=== PATIENT | male | born 1935 | race Caucasian/White ===

== ENCOUNTER 2019-05-24 19:40 | Inpatient (IN) | payer MEDICARE, MEDICAID ==
--- NOTE | 2019-05-24 20:10 | ED Physician Chart ---
ED Chief Complaint/HPI - Patient Information Date Seen:: 05/24/19 Time Seen:: 20:01 Chief Complaint:: agitation History of Present Illness:: 84 yr old [facility] for agitation and psych eval has hx of severe depression dementia Allergies:: Allergies Allergy/AdvReac Type Severity Reaction Status Date / Time erythromycin base Allergy Verified 05/24/19 19:41 Penicillins [PCN] Allergy Verified 05/24/19 19:41 Vitals:: Vital Signs - 8 hr 05/24/19 19:44 Temp 98.2 F HR 68 RR 18 BP 138/72 O2 Sat % 98 ED Review of Systems - Review of Systems General/Constitutional: No fever, No chills, No weight loss, No weakness, No diaphoresis, No edema, No loss of appetite Skin: No skin lesions, No rash, No bruising Head: No headache, No light-headedness Eyes: No loss of vision, No pain, No diplopia ENT: No earache, No nasal drainage, No sore throat, No tinnitus Neck: No neck pain, No swelling, No thyromegaly, No stiffness, No mass noted Cardio Vascular: No chest pain, No palpitations, No PND, No orthopnea, No edema Pulmonary: No SOB, No cough, No sputum, No wheezing GI: No nausea, No vomiting, No diarrhea, No pain, No melena, No hematochezia, No constipation, No hematemesis G/U: No dysuria, No frequency, No hematuria Musculoskeletal: No bone or joint pain, No back pain, No muscle pain Endocrine: No polyuria, No polydipsia Psychiatric: No prior psych history, No depression, No anxiety, No suicidal ideation Hematopoietic: No bruising, No lymphadenopathy Allergic/Immuno: No urticaria, No angioedema Neurological: No syncope, No focal symptoms, No weakness, No paresthesia, No headache, No seizure, No dizziness, No confusion, No vertigo ED Past Medical History - Past Medical History Past Medical History: Seizures, Dementia Family Medical History - Family Member Mother History Unknown: Yes ED Physical Exam - Physical Examination General/Constitutional: Awake, Well-developed, well-nourished, Alert, No distress, GCS 15, Non-toxic appearing, Ambulatory Head: Atraumatic Eyes: Lids, conjuctiva normal, PERRL, EOMI Skin: Nl inspection, No rash, No skin lesions, No ecchymosis, Well hydrated, No lymphadenopathy ENMT: External ears, nose nl, Nasal exam nl, Lips, teeth, gums nl Neck: Nontender, Full ROM w/o pain, No JVD, No nuchal rigidity, No bruit, No mass, No stridor Respiratory: Nl effort/Exclusion, Clear to Auscultation, No Wheeze/Rhonchi/Rales Cardio Vascular: RRR, No murmur, gallop, rubs, NL S1 S2 GI: No tenderness/rebounding/guarding, No organomegaly, No hernia, Normal BS's, Nondistended, No mass/bruits, No McBurney tenderness : No CVA tenderness Extremities: No tenderness or effusion, Full ROM, normal strength in all extremities, No edema, Normal digits & nails Neuro/Psych: Alert/oriented, DTR's symmetric, Normal sensory exam, Normal motor strength, Judgement/insight normal, Mood normal, Normal gait, No focal deficits Misc: Normal back, No paraspinal tenderness ED Assessment - Assessment General Assessment: depression severe and dementia ED Septic Shock - . Is Septic Shock (SBP<90, OR Lactate>4 mmol\L) present?: No - <6hrs of presentation: Vital Signs: Vital Signs - 8 hr 05/24/19 19:44 Temp 98.2 F HR 68 RR 18 BP 138/72 O2 Sat % 98 ED Reassessment (Disposition) - Reassessment Reassessment:: depression - Diagnosis Diagnosis:: as above - Patient Disposition Admitted to:: [facility] Condition at Disposition:: Stable
[2019-05-24 20:27] LABS: % BASOPHILS 0.8 % (0.0-2.0); % LYMPHOCYTES 18.4 % (20.0-50.0); % MONOCYTES 11.7 % (2.0-10.0); % NEUTROPHILS 64.1 % (40.0-80.0); BASOPHILE ABSOLUTE 0.1 Th/cumm (0-0.2); EOSINOPHILE ABSOLUTE 0.4 Th/cmm (0.1-0.4); HEMATOCRIT 36.8 % (41.0-60); HEMOGLOBIN 12.5 gm/dL (12-16); LYMPHOCYTE ABSOLUTE 1.4 Th/cmm (1.5-3.0); MEAN CELL VOLUME 98.1 fl (80-99); MEAN CORPUSCULAR HEMOGLOBIN 33.4 pg (27.0-31.0); MONOCYTE ABSOLUTE 0.9 Th/cmm (0.3-1.0); PLATELET COUNT 135 Th/cmm (150-400); RED BLOOD COUNT 3.75 Mil/cmm (3.80-5.80); RED CELL DISTRIBUTION WIDTH 12.7 % (11.5-20.0); WHITE BLOOD COUNT 7.8 Th/cmm (4.8-10.8)
[2019-05-24 20:38] LABS: ALB/GLOB RATIO 1.2 (1.0-1.8); ALBUMIN 3.9 gm/dL (4.2-5.5); ALKALINE PHOSPHATASE 71 U/L (34-104); ANION GAP 11.2 (7.0-16.0); BILIRUBIN,TOTAL 0.4 mg/dL (0.3-1.0); BUN - UREA NITROGEN 33 mg/dL (7-25); CALCIUM SERUM 9.5 mg/dL (8.6-10.3); CARBON DIOXIDE 29.2 mEq/L (21.0-31.0); CHLORIDE 101 mEq/L (98-107); CREATININE - SERUM 1.8 mg/dL (0.7-1.3); GLUCOSE 111 mg/dL (70-105); POTASSIUM SERUM 5.4 mEq/L (3.5-5.1); SGOT 25 U/L (13-39); SGPT/ALT 14 U/L (7-52); SODIUM SERUM 136 mEq/L (136-145); TOTAL PROTEIN,SERUM 7.3 gm/dL (6.0-8.3)
[2019-05-24 23:22] VITALS: BP 136/56
[2019-05-24] MEDS ORDERED: Magnesium Hydroxide (MOM) 30 mL UDC PO PRN ×2 (23:23→23:27)
[2019-05-24] MEDS ORDERED: Fleet Enema 135 mL RC PRN (23:27)
[2019-05-24 23:30] LABS: URINE SOURCE RANDOM
[2019-05-24 23:37] LABS: URINE BILIRUBIN NEGATIVE (NEGATIVE); URINE BLOOD NEGATIVE (NEGATIVE); URINE GLUCOSE (UA) NEGATIVE (NEGATIVE); URINE KETONE NEGATIVE (NEGATIVE); URINE LEUKOCYTE ESTERASE NEGATIVE (NEGATIVE); URINE NITRATE NEGATIVE (NEGATIVE); URINE PH 7.5 (4.6 - 8.0); URINE PROTEIN NEGATIVE (NEGATIVE); URINE UROBILINOGEN 0.2 E.U./dL (0.2 - 1.0)
[2019-05-24 23:50] LABS: URINE CLARITY CLEAR (CLEAR); URINE COLOR YELLOW; URINE MICROSCOPIC INDICATED? YES
[2019-05-24 23:53] LABS: URINE BACTERIA NONE SEEN /hpf (NONE SEEN); URINE EPITHELIAL CELLS NONE SEEN /lpf (FEW); URINE RBC NONE SEEN /hpf (0-5); URINE WBC NONE SEEN /hpf (0-5)
[2019-05-25 00:36] LABS: CHOLESTEROL 168 mg/dL (<200); HDL -HIGH DENSITY LIPOPROTEIN 55 mg/dL (23-92); TRIGLYCERIDES 83 mg/dL (<150)
[2019-05-25] MEDS: Pantoprazole 40 mg EC Tab PO SCH (06:37)
[2019-05-25] MEDS: Ferrous Sulfate 325 MG TAB PO SCH (08:17)
[2019-05-25] MEDS: Multivitamin Tab PO SCH (08:18)
--- NOTE | 2019-05-25 09:32 | Diagnostic Imaging Report ---
CT scan of the brain without contrast History: Status post fall Total DLP equals 799 CTDI equals 40.7 Axial sections were obtained from the base of the skull to the vertex. There is a normal ventricular system size. No focal parenchymal lesions are seen. No evidence of any mass effect or shift of midline structures. No extra-axial masses or abnormal fluid collections. Prominence of cerebral sulci and ventricles consistent with atrophy. Soft tissue swelling occipital area. Impression: Atrophy. Soft tissue swelling left occipital area.
--- NOTE | 2019-05-25 20:41 | Psychiatric Evaluation ---
DATE OF SERVICE: 05/25/2019 INITIAL PSYCHIATRIC EVALUATION. CHIEF COMPLAINT: "I'm okay." HISTORY OF PRESENT ILLNESS: The patient is an 84-year-old male who was sent from his [facility] facility, [facility] for increased anxiety, agitation and anger outburst. The patient has become a little bit more paranoid and threatening at times. The patient admits to feeling depressed. The patient has been taking his medications. PAST PSYCHIATRIC HISTORY: Significant for depression, mood swings, possible bipolar disorder. SUBSTANCE ABUSE HISTORY: History of benzodiazepine dependence as per daughter. 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 The patient resides at [facility] and he requires complete care. Daughter is supportive and involved in the patient's care. PAST MEDICAL HISTORY: As per H and P. The patient with medical history significant for Parkinson's disease. MENTAL STATUS EXAMINATION: Speech is monotonous, short sentences with some delayed responses at times. Affect constricted, guarded and depressed and the patient reports depressed mood. The patient is somewhat guarded and paranoid, but denied having auditory hallucinations. He is oriented to person, being in the hospital, knows the year, knows the month, but he thought he was 88 years old. No suicidal or homicidal thoughts. THE PATIENT'S STRENGTHS: The patient is accepting treatment. The patient has poor coping skills, difficulty coping with his stressors, mostly his Parkinson's disease. 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 Rule out dementia related to Alzheimer's type. MEDICAL: As per medical history. PLAN: We will admit the patient for hospitalization. We will start with individual and group therapy, assess psychopharmacological intervention. Discussed the options with daughter, restart the patient on Lexapro, which he has taken in the past. Continue olanzapine 2.5 mg p.o. at bedtime. Continue current dose of Lamictal. ESTIMATED LENGTH OF STAY: 3-5 days. CRITERIA FOR DISCHARGE: Improved condition. No agitation or aggressive behavior, safe disposition, outpatient treatment plan. JOB# [id number]
[2019-05-26] MEDS: Pantoprazole 40 mg EC Tab PO SCH (06:29)
[2019-05-26 08:06] LABS: A1C 5.4 % (4.8-5.6)
[2019-05-26] MEDS: Ferrous Sulfate 325 MG TAB PO SCH (09:02)
[2019-05-26] MEDS: Multivitamin Tab PO SCH (09:03)
[2019-05-26] MEDS: Escitalopram Oxalate 5 mg Tab PO SCH (09:03)
--- NOTE | 2019-05-26 21:02 | Progress Notes ---
DATE: 05/26/2019 SUBJECTIVE: The patient was seen, chart reviewed, stated he is feeling better, feeling less anxious. Denies being depressed, but still being down at times. The patient has no suicidal thoughts. The patient's appetite and sleep are fair. The patient is still somewhat guarded, slightly paranoid, but no agitation. ASSESSMENT: The patient's condition is slowly improving. The patient was restarted back on Lexapro. PLAN: Continue hospitalization stabilization. ESTIMATED LENGTH OF STAY: Review progress through daily assessment. [facility]# [id number]
--- NOTE | 2019-05-26 21:36 | History & Physical ---
ADMIT DATE: 05/24/2019 REASON FOR ADMISSION: Psychiatric disorder. HISTORY OF PRESENT ILLNESS: This 84-year-old male who was admitted to [facility] for underlying psychiatric illness by Dr. Martinez. Dr. Martinez requested medical H and P on this patient. The patient said he is doing fine. The patient has had a fall at the [facility] where he sustained a scalp trauma and developed hematoma. The patient denies any headache, no vomiting, no fever, no chills or other concerns reported. PAST MEDICAL HISTORY: Iron deficiency anemia, seizure disorders, chronic constipation, mental disorders, and advanced dementia. FAMILY HISTORY: Noncontributory. SOCIAL HISTORY: Lives at nursing facility. ALLERGIES: ERYTHROMYCIN AND PENICILLIN. REVIEW OF SYSTEMS: No fever, no chills, no diarrhea, no vomiting, no chest pain or trouble breathing. No rash. No bloody stool or bloody urine or any other concerns reported. PHYSICAL EXAMINATION: VITAL SIGNS: Temperature 97.8, pulse 63, respirations 19, blood pressure 132/76, 99% on room air. Pain 0/10. HEENT: Scalp bruise and a small hematoma noted. No surrounding erythema noted. NECK: No neck Range of motion is full. No stiffness noted. No C-spine tenderness noted. HEART: S1, S2 normal. LUNGS: Clear to auscultation. ABDOMEN: Soft. NEUROLOGIC: The patient awake, confused. Moves all extremities. EXTREMITIES: Mild edema noted. LABORATORY DATA: Available laboratory data has been reviewed. ASSESSMENT: 1. Head trauma. 2. Acute renal failure. 3. Seizure disorder. 4. Dementia. 5. Psych disorder. PLAN: We will monitor the patient's hematoma. Ice packs will be given. We will follow up labs, renal ultrasound. Continue medications. Monitor vitals. Psychiatrically, he is medically stable. Thank you, Dr. Martinez, for allowing me to participate in the care of this patient. [facility]# [id number]
[2019-05-27] MEDS: Pantoprazole 40 mg EC Tab PO SCH (06:54)
[2019-05-27 07:52] LABS: ANION GAP 11.6 (7.0-16.0); BUN - UREA NITROGEN 41 mg/dL (7-25); CARBON DIOXIDE 25.8 mEq/L (21.0-31.0); CHLORIDE 100 mEq/L (98-107); CREATININE - SERUM 1.9 mg/dL (0.7-1.3); GLUCOSE 107 mg/dL (70-105); POTASSIUM SERUM 4.4 mEq/L (3.5-5.1); SODIUM SERUM 133 mEq/L (136-145)
[2019-05-27] MEDS: Multivitamin Tab PO SCH (09:21)
[2019-05-27] MEDS: Escitalopram Oxalate 5 mg Tab PO SCH (09:22)
[2019-05-27] MEDS: Ferrous Sulfate 325 MG TAB PO SCH (09:22)
--- NOTE | 2019-05-27 19:23 | Consultation ---
DATE OF CONSULTATION: REFERRING PHYSICIAN: Amy Lubin MD TYPE OF CONSULTATION: Psychology. HISTORY OF PRESENT ILLNESS: The patient is an 84-year-old male. The patient is a resident of [facility]. This patient is known to this freelance writer from [facility] is under my care at his facility. The patient lives with his at [facility]. The following is by record review and by the patient's self report. The staff at the patient's facility report that the patient had become more depressed and somewhat verbally threatening at times. They also report the patient had become more agitated and anxious with several anger outbursts. The patient states that he does not understand why he is being hospitalized but states he had a fall. PAST MEDICAL HISTORY: Please see history and physical by Dr. Torres. PAST PSYCHIATRIC HISTORY: The patient is under the care of his psychiatrist, Dr. Martinez and this psychologist at his placement. The patient is also seen for followup by the psychiatrist, PA or NATHALIE. The patient does not have any previous psychiatric hospitalizations. SUBSTANCE ABUSE HISTORY: Record review indicates the patient has a history of benzodiazepine dependence. The patient denied any abuse of alcohol or tobacco or illicit drug use. 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 The patient has an undergraduate degree. The patient resides at [facility] with his . The patient's daughter, Ranjana is very involved in his care. The patient denied any history of physical or sexual abuse. The patient denies any current legal problems. The patient wishes to return to his placement. MENTAL STATUS EXAMINATION: The patient appears to be his stated age. The patient's attitude is cooperative. The patient did recognize this freelance writer from visits at his detention placement. Eye contact is fair to poor. Speech is slow and delayed. Mood is depressed. Affect is constricted. Thought process shows to be confused at times, but is generally linear and logical as well as goal directed. The patient denied any auditory or visual hallucinations. The patient's behavior has been compliant with staff direction. Impulse control is adequate. Concentration is fair to poor. Sensorium is alert and oriented to self and place and person. The patient's memory assessment revealed that the patient was unable to get his correct age, but did recall his correct date of . Memory is intact for immediate and short-term dimension. Long-term dimension needs further evaluation. The patient did not participate in the interpretation of proverbs. Insight is poor. Judgment is compromised. DIAGNOSTIC IMPRESSION: AXIS I: 1. History of dementia with depression. 2. History of anxiety disorder, not otherwise specified. 3. History of mood disorder, depressed due to medical condition. AXIS II: Deferred. AXIS III: Per Dr. Torres. TREATMENT PLAN: The patient has been seen by Dr. Lubin for psychiatric evaluation and for the management of the patient's psychotropic medications. We will provide reality orientation and integration. We will provide a simple somatic diaphragmatic breathing skill to reduce the patient's anxiety. The patient is known to this freelance writer from his detention placement and is familiar with this type of intervention. He was able to recall the skill and apply it. We will provide coping strategies for phase of life issues. We will encourage the patient to continue to be compliant with his care and treatment. We will continue with motivational enhancement for the patient to be able to follow through with staff direction and to verbalize his concerns versus verbally acting out. This freelance writer will follow him at his placement upon discharge. Thank you, Dr. Lubin for this consult and the opportunity to participate in this patient's care. JOB# [id number] [facility]I
--- NOTE | 2019-05-27 21:03 | Progress Notes ---
DATE: 05/27/2019 SUBJECTIVE: I met this patient. Less anxious, but still having some episodes of irritability and refusing care, refused ultrasound today for no apparent reason. The patient is taking his medications. MENTAL STATUS EXAM: Speech fluent, short sentences, occasional delayed responses. The patient is oriented to person, being in the hospital. The patient still with intermittent paranoia. PLAN: We will continue stabilization, continue hospitalization and monitor closely. The patient still with some depression and anxiety, irritability. JOB# [id number]
--- NOTE | 2019-05-27 21:45 | General Progress Note ---
Subjective - Review of Systems Service Date: 05/27/19 Subjective: patient seen examined scalp wound noted to have some erythema and drainage Objective - Results Result Diagrams: 05/24/19 20:15 05/27/19 07:05 Recent Labs: Laboratory Last Values WBC 7.8 Th/cmm (4.8-10.8) 05/24/19 20:15 RBC 3.75 Mil/cmm (3.80-5.80) L 05/24/19 20:15 Hgb 12.5 gm/dL (12-16) 05/24/19 20:15 Hct 36.8 % (41.0-60) L 05/24/19 20:15 MCV 98.1 fl (80-99) 05/24/19 20:15 MCH 33.4 pg (27.0-31.0) H 05/24/19 20:15 MCHC Differential 34.0 pg (28.0-36.0) 05/24/19 20:15 RDW 12.7 % (11.5-20.0) 05/24/19 20:15 Plt Count 135 Th/cmm (150-400) L 05/24/19 20:15 MPV 9.2 fl 05/24/19 20:15 Neutrophils % 64.1 % (40.0-80.0) 05/24/19 20:15 Lymphocytes % 18.4 % (20.0-50.0) L 05/24/19 20:15 Monocytes % 11.7 % (2.0-10.0) H 05/24/19 20:15 Eosinophils % 5.0 % (0.0-5.0) 05/24/19 20:15 Basophils % 0.8 % (0.0-2.0) 05/24/19 20:15 Sodium 133 mEq/L (136-145) L 05/27/19 07:05 Potassium 4.4 mEq/L (3.5-5.1) 05/27/19 07:05 Chloride 100 mEq/L (98-107) 05/27/19 07:05 Carbon Dioxide 25.8 mEq/L (21.0-31.0) 05/27/19 07:05 Anion Gap 11.6 (7.0-16.0) 05/27/19 07:05 BUN 41 mg/dL (7-25) H 05/27/19 07:05 Creatinine 1.9 mg/dL (0.7-1.3) H 05/27/19 07:05 Est GFR ( Amer) TNP 05/27/19 07:05 Est GFR (Non-Af Amer) TNP 05/27/19 07:05 BUN/Creatinine Ratio 21.6 05/27/19 07:05 Glucose 107 mg/dL (70-105) H 05/27/19 07:05 Calcium 10.0 mg/dL (8.6-10.3) 05/27/19 07:05 Total Bilirubin 0.4 mg/dL (0.3-1.0) 05/24/19 20:15 AST 25 U/L (13-39) 05/24/19 20:15 ALT 14 U/L (7-52) 05/24/19 20:15 Alkaline Phosphatase 71 U/L (34-104) 05/24/19 20:15 Total Protein 7.3 gm/dL (6.0-8.3) 05/24/19 20:15 Albumin 3.9 gm/dL (4.2-5.5) L 05/24/19 20:15 Globulin 3.4 gm/dL 05/24/19 20:15 Albumin/Globulin Ratio 1.2 (1.0-1.8) 05/24/19 20:15 Triglycerides 83 mg/dL (<150) 05/24/19 20:15 Cholesterol 168 mg/dL (<200) 05/24/19 20:15 LDL Cholesterol Direct 100 mg/dL (75-193) 05/24/19 20:15 HDL Cholesterol 55 mg/dL (23-92) 05/24/19 20:15 Urine Source RANDOM 05/24/19 22:05 Urine Color YELLOW 05/24/19 22:05 Urine Clarity CLEAR (CLEAR) 05/24/19 22:05 Urine pH 7.5 (4.6 - 8.0) 05/24/19 22:05 Ur Specific [place] 1.010 (1.005-1.030) 05/24/19 22:05 Urine Protein NEGATIVE mg/dL (NEGATIVE) 05/24/19 22:05 Urine Glucose (UA) NEGATIVE mg/dL (NEGATIVE) 05/24/19 22:05 Urine Ketones NEGATIVE mg/dL (NEGATIVE) 05/24/19 22:05 Urine Blood NEGATIVE (NEGATIVE) 05/24/19 22:05 Urine Nitrate NEGATIVE (NEGATIVE) 05/24/19 22:05 Urine Bilirubin NEGATIVE (NEGATIVE) 05/24/19 22:05 Urine Urobilinogen 0.2 E.U./dL (0.2 - 1.0) 05/24/19 22:05 Ur Leukocyte Esterase NEGATIVE (NEGATIVE) 05/24/19 22:05 Urine RBC NONE SEEN /hpf (0-5) 05/24/19 22:05 Urine WBC NONE SEEN /hpf (0-5) 05/24/19 22:05 Ur Epithelial Cells NONE SEEN /lpf (FEW) 05/24/19 22:05 Urine Bacteria NONE SEEN /hpf (NONE SEEN) 05/24/19 22:05 - Physical Exam Vitals and I&O: Vital Signs Temp 98.9 F 05/27/19 20:07 Pulse 65 05/27/19 20:07 Resp 20 05/27/19 20:07 BP 156/74 05/27/19 20:07 Pulse Ox 98 05/27/19 20:07 Intake & Output 05/27/19 05/27/19 05/28/19 06:59 18:59 06:59 Intake Total 480 960 120 Balance 480 960 120 Intake: Oral 480 960 120 Other: # Voids 2 3 3 # Bowel Movements 1 0 Active Medications: Current Medications Acetaminophen (Tylenol) 650 mg PO Q4HR PRN PRN Reason: Mild Pain / Temp above 100 Stop: 07/23/19 23:22 Bisacodyl (Dulcolax 10 Mg Supp) 10 mg RC Q48H PRN PRN Reason: Constipation Stop: 07/23/19 23:26 Diazepam (Valium) 5 mg PO HS MADALYN; Protocol Stop: 07/24/19 00:00 Last Admin: 05/27/19 20:47 Dose: 5 mg Diazepam (Valium) 2 mg PO 0800,1200,1500 MADALYN; Protocol Stop: 07/24/19 07:59 Last Admin: 05/27/19 15:32 Dose: 2 mg Donepezil HCl (Aricept) 5 mg PO HS MADALYN Stop: 07/24/19 20:59 Last Admin: 05/27/19 20:47 Dose: 5 mg Doxycycline Hyclate (Vibramycin) 100 mg PO Q12HR MADALYN Stop: 06/03/19 20:59 Last Admin: 05/27/19 20:47 Dose: 100 mg Escitalopram Oxalate (Lexapro) 5 mg PO DAILY [facility]; Protocol Stop: 07/25/19 08:59 Last Admin: 05/27/19 09:22 Dose: 5 mg Ferrous Sulfate (Iron) 325 mg PO DAILY [facility] Stop: 07/24/19 08:59 Last Admin: 05/27/19 09:22 Dose: 325 mg Lamotrigine (Lamictal) 50 mg PO BID [facility]; Protocol Stop: 07/24/19 08:59 Last Admin: 05/27/19 16:30 Dose: 50 mg Magnesium Hydroxide (Milk Of Magnesia) 30 ml PO DAILY PRN PRN Reason: Constipation Stop: 07/23/19 23:26 Magnesium Oxide (Mag-Oxide) 400 mg PO DAILY MADALYN Stop: 07/24/19 08:59 Last Admin: 05/27/19 09:21 Dose: 400 mg Memantine (Namenda) 10 mg PO DAILY [facility] Stop: 07/24/19 08:59 Last Admin: 05/27/19 09:22 Dose: 10 mg Multivitamins/Vitamin C (Theragran) 1 tab PO DAILY [facility] Stop: 07/24/19 08:59 Last Admin: 05/27/19 09:21 Dose: 1 tab Olanzapine (Zyprexa) 2.5 mg PO QPM [facility]; Protocol Stop: 07/24/19 16:59 Last Admin: 05/27/19 16:30 Dose: 2.5 mg Pantoprazole Sodium (Protonix) 40 mg PO QDAC [facility] Stop: 07/24/19 07:29 Last Admin: 05/27/19 06:54 Dose: 40 mg Sodium Phosphate (Fleet Enema) 135 ml RC Q48H PRN PRN Reason: Constipation Stop: 07/23/19 23:26 Thiamine HCl (Vitamin B1) 100 mg PO HS [facility] Stop: 07/24/19 20:59 Last Admin: 05/27/19 20:47 Dose: 100 mg Skin: Other (scalp wound with erythema and drainage noted) Assessment/Plan - Assessment Assessment: scalp cellulitis/ hematoma mental health disorder - Plan Plan: keflex orderd Local wound care Case dw Wound care nurse and nursing staff Nutritional Asmnt/Malnutr-PDOC - Dietary Evaluation Malnutrition Findings (Please click <Entered> for more info): Nutritional Asmnt/Malnutrition Start: 05/26/19 12: 14 Text: Status: Complete Freq: Protocol: Document 05/26/19 12:14 CLEOPATRA (Rec: 05/26/19 12:18 CLEOPATRA [email or web address]) Nutritional Asmnt/Malnutrition Patient General Information Nutritional Screening Moderate Risk Diagnosis Psychosis NOS Pertinent Medical Hx/Surgical Hx Seizures, Dementia Subjective Information IA/Consult: Posterior Scalp Hematoma Pt is a 84-year-old male from [facility] admitted on 05/24 c/o agitation. Per RN Maggy, Pt ate 75% at breakfast today. Per wound care note (05/25), Posterior parietal scalp hematoma and percy-hematoma site is erythematous. Will continue to monitor PO intake progress for wound healing. HT: 511 WT: 178 LB (80.9 kg) BMI: 24.8 (Normal) GI: WNL, Flat, Soft, Non- Tender BM: Not Noted I/O: 120/Not Noted Skin: Wound on head Wound: laceration on RT lower lateral leg and top of head Tyler: 15 Diet Order: Cardiac, JOELLEN Estimated Energy Needs: ( Geriatric, CBW) 1941-1972 kcals (25-30 kcals/ kg) 81-97 g Pro (1.0-1.2 g/kg) 0711-1720 ml (25-30 ml/kg) Current Diet Order/ Nutrition Support Cardiac, JOELLEN Pertinent Medications Dulcolax (PRN), Ferrous Sulfate, MOM (PRN), Mag-Oxide, Theragran, Protonix, Fleet Enema (PRN), Vitamin B1 Pertinent Labs 05/24 Hgb/Hct 12.5/36.8, Potass 5.4, BUN/Cr 33/1.8, Glucose 111, Alb 3.9 Nutritional Hx/Data Height 1.8 m Height (Calculated Centimeters) 180.3 Current Weight (lbs) 80.739 kg Weight (Calculated Kilograms) 80.7 Weight (Calculated Grams) 89080.[address] [place] Body Weight 75.3 kg % [place] Body Weight 107 Body Mass Index (BMI) 24.8 Weight Status Approriate GI Symptoms GI Symptoms None Last BM Not Noted Skin Integrity/Comment: laceration on RT lower lateral leg and top of head Current %PO Good (75-100%) Estimated Nutritional Goals BEE in Kcals: Using Current wt Calories/Kcals/Kg 25-30 Kcals Calculated 0094-1213 Protein: Using Current wt Protein g/k.0-1.2 Protein Calculated 81-97 Fluid: ml 3969-2641 ml (25-30 ml/kg) Nutritional Problem 1. Problem Problem Altered nutrition related labs Etiology medical condition Signs/Symptoms: lab result Potass 5.4, BUN/Cr 33/1.8, Glucose 111, Alb 3.9 Malnutrition Related to Morbid Obesity Malnutrition related to morbid obesity No Intervention/Recommendation Comments 1.Continue with Cardiac, JOELLEN diet as ordered. 2.Continue wound care recommendation per wound care note. Expected Outcomes/Goals Expected Outcomes/Goals 1.PO intake to meet 75% of nutritional needs. 2.Monitor PO intake, wt, nutrition related labs to trend WNL, and skin integrity to trend WNL. 3.F/U as moderate risk in 3-5 days, 05/29-05/31
[2019-05-28] MEDS: Pantoprazole 40 mg EC Tab PO SCH (06:48)
[2019-05-28] MEDS: Ferrous Sulfate 325 MG TAB PO SCH (08:37)
[2019-05-28] MEDS: Escitalopram Oxalate 5 mg Tab PO SCH (08:37)
[2019-05-28] MEDS: Multivitamin Tab PO SCH (08:37)
--- NOTE | 2019-05-28 19:24 | Progress Notes ---
DATE: 05/28/2019 SUBJECTIVE: The patient was seen, remains anxious, still irritable, still with episodes of depression. The patient, however, is taking his medications. He is aware to be in the hospital. He is oriented to person and a little bit about situation, admits to have some anxiety and depression. The patient's appetite is fair. ASSESSMENT: The patient appears to be less anxious and less depressed, but still have some anxiety and agitation. PLAN: Continue hospitalization stabilization. Continue medication management. [facility]# [id number]
--- NOTE | 2019-05-28 22:49 | Progress Notes ---
DATE: 05/28/2019 The patient's care transferred to my care since we are following the patient in [facility] starting from the beginning of this month and the wellness program administrator of the facility asked me to follow up the patient. Chart reviewed and the patient interviewed. The patient seems to be calmer, but he is still resisting care and he is still having episodes of anger and irritability. The patient also is suspicious and still needs redirection. Also, still has episodes of anger. On the other hand, the patient is compliant with taking his medications with no side effects of medications. ASSESSMENT: The patient seems to be less irritable, easier to redirect him, but still uncooperative with his care. TREATMENT PLAN: Continue to monitor his behavior and his condition closely. Also, continue adjusting psychotropic medications and work on behavioral modification. [facility]# [id number]
[2019-05-29] MEDS: Pantoprazole 40 mg EC Tab PO SCH (06:37)
[2019-05-29] MEDS: Escitalopram Oxalate 5 mg Tab PO SCH (09:17)
[2019-05-29] MEDS: Multivitamin Tab PO SCH (09:17)
[2019-05-29] MEDS: Ferrous Sulfate 325 MG TAB PO SCH (09:18)
--- NOTE | 2019-05-29 21:45 | General Progress Note ---
Subjective - Review of Systems Service Date: 05/29/19 Subjective: patient seen examined no new concern noted Objective - Results Result Diagrams: 05/24/19 20:15 05/27/19 07:05 Recent Labs: Laboratory Last Values WBC 7.8 Th/cmm (4.8-10.8) 05/24/19 20:15 RBC 3.75 Mil/cmm (3.80-5.80) L 05/24/19 20:15 Hgb 12.5 gm/dL (12-16) 05/24/19 20:15 Hct 36.8 % (41.0-60) L 05/24/19 20:15 MCV 98.1 fl (80-99) 05/24/19 20:15 MCH 33.4 pg (27.0-31.0) H 05/24/19 20:15 MCHC Differential 34.0 pg (28.0-36.0) 05/24/19 20:15 RDW 12.7 % (11.5-20.0) 05/24/19 20:15 Plt Count 135 Th/cmm (150-400) L 05/24/19 20:15 MPV 9.2 fl 05/24/19 20:15 Neutrophils % 64.1 % (40.0-80.0) 05/24/19 20:15 Lymphocytes % 18.4 % (20.0-50.0) L 05/24/19 20:15 Monocytes % 11.7 % (2.0-10.0) H 05/24/19 20:15 Eosinophils % 5.0 % (0.0-5.0) 05/24/19 20:15 Basophils % 0.8 % (0.0-2.0) 05/24/19 20:15 Sodium 133 mEq/L (136-145) L 05/27/19 07:05 Potassium 4.4 mEq/L (3.5-5.1) 05/27/19 07:05 Chloride 100 mEq/L (98-107) 05/27/19 07:05 Carbon Dioxide 25.8 mEq/L (21.0-31.0) 05/27/19 07:05 Anion Gap 11.6 (7.0-16.0) 05/27/19 07:05 BUN 41 mg/dL (7-25) H 05/27/19 07:05 Creatinine 1.9 mg/dL (0.7-1.3) H 05/27/19 07:05 Est GFR ( Amer) TNP 05/27/19 07:05 Est GFR (Non-Af Amer) TNP 05/27/19 07:05 BUN/Creatinine Ratio 21.6 05/27/19 07:05 Glucose 107 mg/dL (70-105) H 05/27/19 07:05 Calcium 10.0 mg/dL (8.6-10.3) 05/27/19 07:05 Total Bilirubin 0.4 mg/dL (0.3-1.0) 05/24/19 20:15 AST 25 U/L (13-39) 05/24/19 20:15 ALT 14 U/L (7-52) 05/24/19 20:15 Alkaline Phosphatase 71 U/L (34-104) 05/24/19 20:15 Total Protein 7.3 gm/dL (6.0-8.3) 05/24/19 20:15 Albumin 3.9 gm/dL (4.2-5.5) L 05/24/19 20:15 Globulin 3.4 gm/dL 05/24/19 20:15 Albumin/Globulin Ratio 1.2 (1.0-1.8) 05/24/19 20:15 Triglycerides 83 mg/dL (<150) 05/24/19 20:15 Cholesterol 168 mg/dL (<200) 05/24/19 20:15 LDL Cholesterol Direct 100 mg/dL (75-193) 05/24/19 20:15 HDL Cholesterol 55 mg/dL (23-92) 05/24/19 20:15 Urine Source RANDOM 05/24/19 22:05 Urine Color YELLOW 05/24/19 22:05 Urine Clarity CLEAR (CLEAR) 05/24/19 22:05 Urine pH 7.5 (4.6 - 8.0) 05/24/19 22:05 Ur Specific [place] 1.010 (1.005-1.030) 05/24/19 22:05 Urine Protein NEGATIVE mg/dL (NEGATIVE) 05/24/19 22:05 Urine Glucose (UA) NEGATIVE mg/dL (NEGATIVE) 05/24/19 22:05 Urine Ketones NEGATIVE mg/dL (NEGATIVE) 05/24/19 22:05 Urine Blood NEGATIVE (NEGATIVE) 05/24/19 22:05 Urine Nitrate NEGATIVE (NEGATIVE) 05/24/19 22:05 Urine Bilirubin NEGATIVE (NEGATIVE) 05/24/19 22:05 Urine Urobilinogen 0.2 E.U./dL (0.2 - 1.0) 05/24/19 22:05 Ur Leukocyte Esterase NEGATIVE (NEGATIVE) 05/24/19 22:05 Urine RBC NONE SEEN /hpf (0-5) 05/24/19 22:05 Urine WBC NONE SEEN /hpf (0-5) 05/24/19 22:05 Ur Epithelial Cells NONE SEEN /lpf (FEW) 05/24/19 22:05 Urine Bacteria NONE SEEN /hpf (NONE SEEN) 05/24/19 22:05 - Physical Exam Vitals and I&O: Vital Signs Temp 98.8 F 05/29/19 20:01 Pulse 57 05/29/19 20:01 Resp 20 05/29/19 20:01 BP 140/58 05/29/19 20:01 Pulse Ox 93 05/29/19 20:01 Intake & Output 05/29/19 05/29/19 05/30/19 06:59 18:59 06:59 Intake Total 120 850 120 Balance 120 850 120 Intake: Oral 120 850 120 Other: # Voids 2 3 2 # Bowel Movements 0 1 0 Active Medications: Current Medications Acetaminophen (Tylenol) 650 mg PO Q4HR PRN PRN Reason: Mild Pain / Temp above 100 Stop: 07/23/19 23:22 Bisacodyl (Dulcolax 10 Mg Supp) 10 mg RC Q48H PRN PRN Reason: Constipation Stop: 07/23/19 23:26 Diazepam (Valium) 5 mg PO HS [facility]; Protocol Stop: 07/24/19 00:00 Last Admin: 05/29/19 21:25 Dose: 5 mg Diazepam (Valium) 2 mg PO 0800,1200,1500 [facility]; Protocol Stop: 07/24/19 07:59 Last Admin: 05/29/19 15:02 Dose: 2 mg Donepezil HCl (Aricept) 5 mg PO HS [facility] Stop: 07/24/19 20:59 Last Admin: 05/29/19 21:26 Dose: 5 mg Doxycycline Hyclate (Vibramycin) 100 mg PO Q12HR [facility] Stop: 06/03/19 20:59 Last Admin: 05/29/19 21:26 Dose: 100 mg Escitalopram Oxalate (Lexapro) 5 mg PO DAILY [facility]; Protocol Stop: 07/25/19 08:59 Last Admin: 05/29/19 09:17 Dose: 5 mg Ferrous Sulfate (Iron) 325 mg PO DAILY [facility] Stop: 07/24/19 08:59 Last Admin: 05/29/19 09:18 Dose: 325 mg Lamotrigine (Lamictal) 50 mg PO BID [facility]; Protocol Stop: 07/24/19 08:59 Last Admin: 05/29/19 17:22 Dose: 50 mg Magnesium Hydroxide (Milk Of Magnesia) 30 ml PO DAILY PRN PRN Reason: Constipation Stop: 07/23/19 23:26 Magnesium Oxide (Mag-Oxide) 400 mg PO DAILY [facility] Stop: 07/24/19 08:59 Last Admin: 05/29/19 09:18 Dose: 400 mg Memantine (Namenda) 10 mg PO DAILY [facility] Stop: 07/24/19 08:59 Last Admin: 05/29/19 09:17 Dose: 10 mg Multivitamins/Vitamin C (Theragran) 1 tab PO DAILY [facility] Stop: 07/24/19 08:59 Last Admin: 05/29/19 09:17 Dose: 1 tab Olanzapine (Zyprexa) 2.5 mg PO QPM [facility]; Protocol Stop: 07/24/19 16:59 Last Admin: 05/29/19 17:22 Dose: 2.5 mg Pantoprazole Sodium (Protonix) 40 mg PO QDAC [facility] Stop: 07/24/19 07:29 Last Admin: 05/29/19 06:37 Dose: 40 mg Sodium Phosphate (Fleet Enema) 135 ml RC Q48H PRN PRN Reason: Constipation Stop: 07/23/19 23:26 Thiamine HCl (Vitamin B1) 100 mg PO HS [facility] Stop: 07/24/19 20:59 Last Admin: 05/29/19 21:25 Dose: 100 mg Skin: Other (scalp wound with erythema and drainage noted) Assessment/Plan - Assessment Assessment: scalp cellulitis/ hematoma mental health disorder - Plan Plan: keflex orderd Local wound care Case dw Wound care nurse and nursing staff Nutritional Asmnt/Malnutr-PDOC - Dietary Evaluation Malnutrition Findings (Please click <Entered> for more info): Nutritional Asmnt/Malnutrition Start: 05/26/19 12: 14 Text: Status: Complete Freq: Protocol: Document 05/26/19 12:14 CLEOPATRA (Rec: 05/26/19 12:18 CLEOPATRA [email or web address]) Nutritional Asmnt/Malnutrition Patient General Information Nutritional Screening Moderate Risk Diagnosis Psychosis NOS Pertinent Medical Hx/Surgical Hx Seizures, Dementia Subjective Information IA/Consult: Posterior Scalp Hematoma Pt is a 84-year-old male from assisted admitted on 05/24 c/o agitation. Per RN Maggy, Pt ate 75% at breakfast today. Per wound care note (05/25), Posterior parietal scalp hematoma and percy-hematoma site is erythematous. Will continue to monitor PO intake progress for wound healing. HT: 511 WT: 178 LB (80.9 kg) BMI: 24.8 (Normal) GI: WNL, Flat, Soft, Non- Tender BM: Not Noted I/O: 120/Not Noted Skin: Wound on head Wound: laceration on RT lower lateral leg and top of head Tyler: 15 Diet Order: Cardiac, JOELLEN Estimated Energy Needs: ( Geriatric, CBW) 2003-6474 kcals (25-30 kcals/ kg) 81-97 g Pro (1.0-1.2 g/kg) 1743-3872 ml (25-30 ml/kg) Current Diet Order/ Nutrition Support Cardiac, JOELLEN Pertinent Medications Dulcolax (PRN), Ferrous Sulfate, MOM (PRN), Mag-Oxide, Theragran, Protonix, Fleet Enema (PRN), Vitamin B1 Pertinent Labs 05/24 Hgb/Hct 12.5/36.8, Potass 5.4, BUN/Cr 33/1.8, Glucose 111, Alb 3.9 Nutritional Hx/Data Height 1.8 m Height (Calculated Centimeters) 180.3 Current Weight (lbs) 80.739 kg Weight (Calculated Kilograms) 80.7 Weight (Calculated Grams) 50574.4 Wrights Body Weight 75.3 kg % Wrights Body Weight 107 Body Mass Index (BMI) 24.8 Weight Status Approriate GI Symptoms GI Symptoms None Last BM Not Noted Skin Integrity/Comment: laceration on RT lower lateral leg and top of head Current %PO Good (75-100%) Estimated Nutritional Goals BEE in Kcals: Using Current wt Calories/Kcals/Kg 25-30 Kcals Calculated 6971-1094 Protein: Using Current wt Protein g/k.0-1.2 Protein Calculated 81-97 Fluid: ml 8185-9369 ml (25-30 ml/kg) Nutritional Problem 1. Problem Problem Altered nutrition related labs Etiology medical condition Signs/Symptoms: lab result Potass 5.4, BUN/Cr 33/1.8, Glucose 111, Alb 3.9 Malnutrition Related to Morbid Obesity Malnutrition related to morbid obesity No Intervention/Recommendation Comments 1.Continue with Cardiac, JOELLEN diet as ordered. 2.Continue wound care recommendation per wound care note. Expected Outcomes/Goals Expected Outcomes/Goals 1.PO intake to meet 75% of nutritional needs. 2.Monitor PO intake, wt, nutrition related labs to trend WNL, and skin integrity to trend WNL. 3.F/U as moderate risk in 3-5 days, 05/29-05/31
--- NOTE | 2019-05-30 00:49 | Progress Notes ---
DATE: 05/29/2019 PSYCHIATRIC PROGRESS NOTE SUBJECTIVE: Chart was reviewed and the patient interviewed. Also discussed the patient's condition with the staff and reviewed records and labs. The patient still has mood swings. The patient also is still anxious and still has episodes of irritability, but seems to be less. He is interacting minimally with others. Otherwise, the patient is compliant with taking his medications with no side effects of Zyprexa, Lamictal or Lexapro. ASSESSMENT: The patient seems to be less agitated and less irritable. TREATMENT PLAN: Continue to monitor behavior and condition closely. Also, continue adjusting psychotropic medications and work on behavioral modification. JOB# [id number]
[2019-05-30] MEDS: Pantoprazole 40 mg EC Tab PO SCH (06:41)
[2019-05-30] MEDS: Multivitamin Tab PO SCH (08:07)
[2019-05-30] MEDS: Ferrous Sulfate 325 MG TAB PO SCH (08:08)
[2019-05-30] MEDS: Escitalopram Oxalate 5 mg Tab PO SCH (08:08)
--- NOTE | 2019-05-30 21:31 | Progress Notes ---
DATE: 05/30/2019 PSYCHOLOGY PROGRESS NOTE SUBJECTIVE: The patient is seen in his room and is interviewed. Case is discussed with staff. The patient continues to seem guarded and mildly irritable. Staff reports the patient has occasional mood swings; however, he has been compliant with his medication. OBJECTIVE: Mood is anxious. Affect is broad. Thought process shows to be linear and logical with some confusion. The patient denied any hallucinations or delusions. The patient, according to staff, continues to have some anxious and irritable episodes. ASSESSMENT AND PLAN: The patient is less agitated and less irritable. The patient has been compliant with his medications. This sports book writer provided a simple anxiety reduction skill that the patient had learned in treatment with this provider at his retirement placement. We provided coping strategies for phase of life issues and encouraged the patient to verbalize his concerns versus acting out. ADDENDUM: The patient is known to this sports book writer from [facility] where this patient was under this psychologist's care. I have been informed that the attending psychiatrist as well as Psychiatry service has been changed for the patient to Kashif and Maricel. Therefore, this sports book writer will discontinue psychology services this date. JOB# [id number] AMI
--- NOTE | 2019-05-30 21:32 | General Progress Note ---
Subjective - Review of Systems Events since last encounter: Patient seen and examined no new medical concern reported Subjective: patient seen examined no new concern noted Objective - Results Result Diagrams: 05/24/19 20:15 05/27/19 07:05 Recent Labs: Laboratory Last Values WBC 7.8 Th/cmm (4.8-10.8) 05/24/19 20:15 RBC 3.75 Mil/cmm (3.80-5.80) L 05/24/19 20:15 Hgb 12.5 gm/dL (12-16) 05/24/19 20:15 Hct 36.8 % (41.0-60) L 05/24/19 20:15 MCV 98.1 fl (80-99) 05/24/19 20:15 MCH 33.4 pg (27.0-31.0) H 05/24/19 20:15 MCHC Differential 34.0 pg (28.0-36.0) 05/24/19 20:15 RDW 12.7 % (11.5-20.0) 05/24/19 20:15 Plt Count 135 Th/cmm (150-400) L 05/24/19 20:15 MPV 9.2 fl 05/24/19 20:15 Neutrophils % 64.1 % (40.0-80.0) 05/24/19 20:15 Lymphocytes % 18.4 % (20.0-50.0) L 05/24/19 20:15 Monocytes % 11.7 % (2.0-10.0) H 05/24/19 20:15 Eosinophils % 5.0 % (0.0-5.0) 05/24/19 20:15 Basophils % 0.8 % (0.0-2.0) 05/24/19 20:15 Sodium 133 mEq/L (136-145) L 05/27/19 07:05 Potassium 4.4 mEq/L (3.5-5.1) 05/27/19 07:05 Chloride 100 mEq/L (98-107) 05/27/19 07:05 Carbon Dioxide 25.8 mEq/L (21.0-31.0) 05/27/19 07:05 Anion Gap 11.6 (7.0-16.0) 05/27/19 07:05 BUN 41 mg/dL (7-25) H 05/27/19 07:05 Creatinine 1.9 mg/dL (0.7-1.3) H 05/27/19 07:05 Est GFR ( Amer) TNP 05/27/19 07:05 Est GFR (Non-Af Amer) TNP 05/27/19 07:05 BUN/Creatinine Ratio 21.6 05/27/19 07:05 Glucose 107 mg/dL (70-105) H 05/27/19 07:05 Calcium 10.0 mg/dL (8.6-10.3) 05/27/19 07:05 Total Bilirubin 0.4 mg/dL (0.3-1.0) 05/24/19 20:15 AST 25 U/L (13-39) 05/24/19 20:15 ALT 14 U/L (7-52) 05/24/19 20:15 Alkaline Phosphatase 71 U/L (34-104) 05/24/19 20:15 Total Protein 7.3 gm/dL (6.0-8.3) 05/24/19 20:15 Albumin 3.9 gm/dL (4.2-5.5) L 05/24/19 20:15 Globulin 3.4 gm/dL 05/24/19 20:15 Albumin/Globulin Ratio 1.2 (1.0-1.8) 05/24/19 20:15 Triglycerides 83 mg/dL (<150) 05/24/19 20:15 Cholesterol 168 mg/dL (<200) 05/24/19 20:15 LDL Cholesterol Direct 100 mg/dL (75-193) 05/24/19 20:15 HDL Cholesterol 55 mg/dL (23-92) 05/24/19 20:15 Urine Source RANDOM 05/24/19 22:05 Urine Color YELLOW 05/24/19 22:05 Urine Clarity CLEAR (CLEAR) 05/24/19 22:05 Urine pH 7.5 (4.6 - 8.0) 05/24/19 22:05 Ur Specific [place] 1.010 (1.005-1.030) 05/24/19 22:05 Urine Protein NEGATIVE mg/dL (NEGATIVE) 05/24/19 22:05 Urine Glucose (UA) NEGATIVE mg/dL (NEGATIVE) 05/24/19 22:05 Urine Ketones NEGATIVE mg/dL (NEGATIVE) 05/24/19 22:05 Urine Blood NEGATIVE (NEGATIVE) 05/24/19 22:05 Urine Nitrate NEGATIVE (NEGATIVE) 05/24/19 22:05 Urine Bilirubin NEGATIVE (NEGATIVE) 05/24/19 22:05 Urine Urobilinogen 0.2 E.U./dL (0.2 - 1.0) 05/24/19 22:05 Ur Leukocyte Esterase NEGATIVE (NEGATIVE) 05/24/19 22:05 Urine RBC NONE SEEN /hpf (0-5) 05/24/19 22:05 Urine WBC NONE SEEN /hpf (0-5) 05/24/19 22:05 Ur Epithelial Cells NONE SEEN /lpf (FEW) 05/24/19 22:05 Urine Bacteria NONE SEEN /hpf (NONE SEEN) 05/24/19 22:05 - Physical Exam Vitals and I&O: Vital Signs Temp 98.8 F 05/30/19 20:35 Pulse 60 05/30/19 20:35 Resp 18 05/30/19 20:35 BP 126/75 05/30/19 20:35 Pulse Ox 97 05/30/19 20:35 Intake & Output 05/30/19 05/30/19 05/31/19 06:59 18:59 06:59 Intake Total 120 720 240 Balance 120 720 240 Intake: Oral 120 720 240 Other: # Voids 3 3 2 # Bowel Movements 0 0 Active Medications: Current Medications Acetaminophen (Tylenol) 650 mg PO Q4HR PRN PRN Reason: Mild Pain / Temp above 100 Stop: 07/23/19 23:22 Bisacodyl (Dulcolax 10 Mg Supp) 10 mg RC Q48H PRN PRN Reason: Constipation Stop: 07/23/19 23:26 Diazepam (Valium) 5 mg PO HS [facility]; Protocol Stop: 07/24/19 00:00 Last Admin: 05/30/19 20:37 Dose: 5 mg Diazepam (Valium) 2 mg PO 0800,1200,1500 [facility]; Protocol Stop: 07/24/19 07:59 Last Admin: 05/30/19 15:46 Dose: Not Given Donepezil HCl (Aricept) 5 mg PO HS [facility] Stop: 07/24/19 20:59 Last Admin: 05/30/19 20:37 Dose: 5 mg Doxycycline Hyclate (Vibramycin) 100 mg PO Q12HR [facility] Stop: 06/03/19 20:59 Last Admin: 05/30/19 20:37 Dose: 100 mg Escitalopram Oxalate (Lexapro) 5 mg PO DAILY [facility]; Protocol Stop: 07/25/19 08:59 Last Admin: 05/30/19 08:08 Dose: 5 mg Ferrous Sulfate (Iron) 325 mg PO DAILY [facility] Stop: 07/24/19 08:59 Last Admin: 05/30/19 08:08 Dose: 325 mg Lamotrigine (Lamictal) 50 mg PO BID [facility]; Protocol Stop: 07/24/19 08:59 Last Admin: 05/30/19 16:47 Dose: 50 mg Magnesium Hydroxide (Milk Of Magnesia) 30 ml PO DAILY PRN PRN Reason: Constipation Stop: 07/23/19 23:26 Magnesium Oxide (Mag-Oxide) 400 mg PO DAILY [facility] Stop: 07/24/19 08:59 Last Admin: 05/30/19 08:08 Dose: 400 mg Memantine (Namenda) 10 mg PO DAILY [facility] Stop: 07/24/19 08:59 Last Admin: 05/30/19 08:48 Dose: 10 mg Multivitamins/Vitamin C (Theragran) 1 tab PO DAILY [facility] Stop: 07/24/19 08:59 Last Admin: 05/30/19 08:07 Dose: 1 tab Olanzapine (Zyprexa) 2.5 mg PO QPM [facility]; Protocol Stop: 07/24/19 16:59 Last Admin: 05/30/19 16:47 Dose: 2.5 mg Pantoprazole Sodium (Protonix) 40 mg PO QDAC [facility] Stop: 07/24/19 07:29 Last Admin: 05/30/19 06:41 Dose: 40 mg Sodium Phosphate (Fleet Enema) 135 ml RC Q48H PRN PRN Reason: Constipation Stop: 07/23/19 23:26 Thiamine HCl (Vitamin B1) 100 mg PO HS [facility] Stop: 07/24/19 20:59 Last Admin: 05/30/19 20:37 Dose: 100 mg Cardiovascular: Regular rate Lungs: Clear to auscultation Skin: Other (scalp wound with erythema no active drainage noted) Assessment/Plan - Assessment Assessment: scalp cellulitis/ hematoma mental health disorder - Plan Plan: Continue oral antibiotics Local wound care Case discussed with nursing staff Nutritional Asmnt/Malnutr-PDOC - Dietary Evaluation Malnutrition Findings (Please click <Entered> for more info): Nutritional Asmnt/Malnutrition Start: 05/26/19 12: 14 Text: Status: Complete Freq: Protocol: Document 05/26/19 12:14 CLEOPATRA (Rec: 05/26/19 12:18 CLEOPATRA [email or web address]) Nutritional Asmnt/Malnutrition Patient General Information Nutritional Screening Moderate Risk Diagnosis Psychosis NOS Pertinent Medical Hx/Surgical Hx Seizures, Dementia Subjective Information IA/Consult: Posterior Scalp Hematoma Pt is a 84[facility]/o agitation. Per RN Maggy, Pt ate 75% at breakfast today. Per wound care note (05/25), Posterior parietal scalp hematoma and percy-hematoma site is erythematous. Will continue to monitor PO intake progress for wound healing. HT: 511 WT: 178 LB (80.9 kg) BMI: 24.8 (Normal) GI: WNL, Flat, Soft, Non- Tender BM: Not Noted I/O: 120/Not Noted Skin: Wound on head Wound: laceration on RT lower lateral leg and top of head Tyler: 15 Diet Order: Cardiac, JOELLEN Estimated Energy Needs: ( Geriatric, CBW) 2175-7029 kcals (25-30 kcals/ kg) 81-97 g Pro (1.0-1.2 g/kg) 2630-4980 ml (25-30 ml/kg) Current Diet Order/ Nutrition Support Cardiac, JOELLEN Pertinent Medications Dulcolax (PRN), Ferrous Sulfate, MOM (PRN), Mag-Oxide, Theragran, Protonix, Fleet Enema (PRN), Vitamin B1 Pertinent Labs 05/24 Hgb/Hct 12.5/36.8, Potass 5.4, BUN/Cr 33/1.8, Glucose 111, Alb 3.9 Nutritional Hx/Data Height 1.8 m Height (Calculated Centimeters) 180.3 Current Weight (lbs) 80.739 kg Weight (Calculated Kilograms) 80.7 Weight (Calculated Grams) 97949.4 Gillespie Body Weight 75.3 kg % Gillespie Body Weight 107 Body Mass Index (BMI) 24.8 Weight Status Approriate GI Symptoms GI Symptoms None Last BM Not Noted Skin Integrity/Comment: laceration on RT lower lateral leg and top of head Current %PO Good (75-100%) Estimated Nutritional Goals BEE in Kcals: Using Current wt Calories/Kcals/Kg 25-30 Kcals Calculated 7412-8889 Protein: Using Current wt Protein g/k.0-1.2 Protein Calculated 81-97 Fluid: ml 8892-8762 ml (25-30 ml/kg) Nutritional Problem 1. Problem Problem Altered nutrition related labs Etiology medical condition Signs/Symptoms: lab result Potass 5.4, BUN/Cr 33/1.8, Glucose 111, Alb 3.9 Malnutrition Related to Morbid Obesity Malnutrition related to morbid obesity No Intervention/Recommendation Comments 1.Continue with Cardiac, JOELLEN diet as ordered. 2.Continue wound care recommendation per wound care note. Expected Outcomes/Goals Expected Outcomes/Goals 1.PO intake to meet 75% of nutritional needs. 2.Monitor PO intake, wt, nutrition related labs to trend WNL, and skin integrity to trend WNL. 3.F/U as moderate risk in 3-5 days, 05/29-05/31
[2019-05-31] MEDS: Pantoprazole 40 mg EC Tab PO SCH (06:42)
[2019-05-31] MEDS: Ferrous Sulfate 325 MG TAB PO SCH (08:30)
[2019-05-31] MEDS: Escitalopram Oxalate 5 mg Tab PO SCH (08:30)
[2019-05-31] MEDS: Multivitamin Tab PO SCH (08:31)
--- NOTE | 2019-05-31 14:38 | Progress Notes ---
DATE: 05/30/2019 SUBJECTIVE: This is an 84-year-old male sent from a shelter facility, actually referred by this clinician, Dr. Lorenz, for anxiety, agitation, anger outbursts. They could not really handle him here. He was just frankly too aggressive. The patient on [id number] AO to name. He knows he is in the hospital. He has no idea why he is in the hospital. States the year is 1988, states it is April. Does not know the city he is in. Still in a [place] chair, restless, very anxious. The patient remains unruly, poorly oriented, very impulsive, highly unpredictable, still striking out at staff, ongoing safety concerns. ASSESSMENT: The patient remains symptomatic, ongoing concerns about mostly the safety of others. PLAN: We will continue to monitor, low-dose Zyprexa. JOB# [id number]
--- NOTE | 2019-06-01 02:23 | Progress Notes ---
DATE: 05/31/2019 SUBJECTIVE: The patient in the hospital. He was pretty aggressive at the alf facility, agitated, striking out. Currently on dosing of Seroquel, he has been relatively calm today, sleeping, but arousable at this time Very disoriented, forgetful, confused, needing some prompting, redirection, easily triggered, concerns that he may strike out at staff act out upon his impulses. Fair sleep, fair appetite. Medications were noted. PLAN: We will continue to monitor, adjust and titrate medications. The patient currently on Lexapro, Lamictal. JOB# [id number]
[2019-06-01] MEDS: Pantoprazole 40 mg EC Tab PO SCH (06:30)
[2019-06-01] MEDS: Escitalopram Oxalate 5 mg Tab PO SCH (08:56)
[2019-06-01] MEDS: Ferrous Sulfate 325 MG TAB PO SCH (08:57)
[2019-06-01] MEDS: Multivitamin Tab PO SCH (08:57)
--- NOTE | 2019-06-01 23:32 | Progress Notes ---
DATE: 06/01/2019 SUBJECTIVE: The patient in the hospital pretty agitated, aggressive, combative that they could not handle him at the group home, calmer, generally more cooperative, very confused, disoriented, impulsive, highly unpredictable, concerns that he may strike out, act out upon impulses. MEDICATIONS: Reviewed. PLAN: We will continue to monitor for any behavioral disturbances or striking out behaviors. We will slowly titrate medications. Given his age of 84, we will approach cautiously. [facility]# [id number]
[2019-06-02] MEDS: Pantoprazole 40 mg EC Tab PO SCH (06:44)
[2019-06-02] MEDS: Ferrous Sulfate 325 MG TAB PO SCH (08:47)
[2019-06-02] MEDS: Escitalopram Oxalate 5 mg Tab PO SCH (08:47)
[2019-06-02] MEDS: Multivitamin Tab PO SCH (08:48)
[2019-06-02] MEDS: Triple Antibiotic 0.94 gm Pkt TP SCH (12:58)
[2019-06-03] MEDS: Pantoprazole 40 mg EC Tab PO SCH (06:30)
[2019-06-03] MEDS: Multivitamin Tab PO SCH (09:08)
[2019-06-03] MEDS: Ferrous Sulfate 325 MG TAB PO SCH (09:08)
[2019-06-03] MEDS: Triple Antibiotic 0.94 gm Pkt TP SCH (09:08)
[2019-06-03] MEDS: Escitalopram Oxalate 5 mg Tab PO SCH (09:08)
--- NOTE | 2019-06-03 15:31 | Progress Notes ---
DATE: 06/02/2019 SUBJECTIVE: An 84-year-old male, ____ and moving while shaking his bed, threw his breakfast, very impulsive, unpredictable, calmed down. Calm at this time, sleeping. Staff noting it is difficult to predict his behaviors, still with episodes of agitation, ongoing confusion and disorientation. PLAN: I will continue to monitor, titrate medications slowly. Medications were noted. [facility]# [id number]
--- NOTE | 2019-06-03 22:08 | General Progress Note ---
Subjective - Review of Systems Service Date: 06/02/19 Subjective: patient seen examined no new concern noted Objective - Results Result Diagrams: 05/24/19 20:15 05/27/19 07:05 Recent Labs: Laboratory Last Values WBC 7.8 Th/cmm (4.8-10.8) 05/24/19 20:15 RBC 3.75 Mil/cmm (3.80-5.80) L 05/24/19 20:15 Hgb 12.5 gm/dL (12-16) 05/24/19 20:15 Hct 36.8 % (41.0-60) L 05/24/19 20:15 MCV 98.1 fl (80-99) 05/24/19 20:15 MCH 33.4 pg (27.0-31.0) H 05/24/19 20:15 MCHC Differential 34.0 pg (28.0-36.0) 05/24/19 20:15 RDW 12.7 % (11.5-20.0) 05/24/19 20:15 Plt Count 135 Th/cmm (150-400) L 05/24/19 20:15 MPV 9.2 fl 05/24/19 20:15 Neutrophils % 64.1 % (40.0-80.0) 05/24/19 20:15 Lymphocytes % 18.4 % (20.0-50.0) L 05/24/19 20:15 Monocytes % 11.7 % (2.0-10.0) H 05/24/19 20:15 Eosinophils % 5.0 % (0.0-5.0) 05/24/19 20:15 Basophils % 0.8 % (0.0-2.0) 05/24/19 20:15 Sodium 133 mEq/L (136-145) L 05/27/19 07:05 Potassium 4.4 mEq/L (3.5-5.1) 05/27/19 07:05 Chloride 100 mEq/L (98-107) 05/27/19 07:05 Carbon Dioxide 25.8 mEq/L (21.0-31.0) 05/27/19 07:05 Anion Gap 11.6 (7.0-16.0) 05/27/19 07:05 BUN 41 mg/dL (7-25) H 05/27/19 07:05 Creatinine 1.9 mg/dL (0.7-1.3) H 05/27/19 07:05 Est GFR ( Amer) TNP 05/27/19 07:05 Est GFR (Non-Af Amer) TNP 05/27/19 07:05 BUN/Creatinine Ratio 21.6 05/27/19 07:05 Glucose 107 mg/dL (70-105) H 05/27/19 07:05 Calcium 10.0 mg/dL (8.6-10.3) 05/27/19 07:05 Total Bilirubin 0.4 mg/dL (0.3-1.0) 05/24/19 20:15 AST 25 U/L (13-39) 05/24/19 20:15 ALT 14 U/L (7-52) 05/24/19 20:15 Alkaline Phosphatase 71 U/L (34-104) 05/24/19 20:15 Total Protein 7.3 gm/dL (6.0-8.3) 05/24/19 20:15 Albumin 3.9 gm/dL (4.2-5.5) L 05/24/19 20:15 Globulin 3.4 gm/dL 05/24/19 20:15 Albumin/Globulin Ratio 1.2 (1.0-1.8) 05/24/19 20:15 Triglycerides 83 mg/dL (<150) 05/24/19 20:15 Cholesterol 168 mg/dL (<200) 05/24/19 20:15 LDL Cholesterol Direct 100 mg/dL (75-193) 05/24/19 20:15 HDL Cholesterol 55 mg/dL (23-92) 05/24/19 20:15 Urine Source RANDOM 05/24/19 22:05 Urine Color YELLOW 05/24/19 22:05 Urine Clarity CLEAR (CLEAR) 05/24/19 22:05 Urine pH 7.5 (4.6 - 8.0) 05/24/19 22:05 Ur Specific [place] 1.010 (1.005-1.030) 05/24/19 22:05 Urine Protein NEGATIVE mg/dL (NEGATIVE) 05/24/19 22:05 Urine Glucose (UA) NEGATIVE mg/dL (NEGATIVE) 05/24/19 22:05 Urine Ketones NEGATIVE mg/dL (NEGATIVE) 05/24/19 22:05 Urine Blood NEGATIVE (NEGATIVE) 05/24/19 22:05 Urine Nitrate NEGATIVE (NEGATIVE) 05/24/19 22:05 Urine Bilirubin NEGATIVE (NEGATIVE) 05/24/19 22:05 Urine Urobilinogen 0.2 E.U./dL (0.2 - 1.0) 05/24/19 22:05 Ur Leukocyte Esterase NEGATIVE (NEGATIVE) 05/24/19 22:05 Urine RBC NONE SEEN /hpf (0-5) 05/24/19 22:05 Urine WBC NONE SEEN /hpf (0-5) 05/24/19 22:05 Ur Epithelial Cells NONE SEEN /lpf (FEW) 05/24/19 22:05 Urine Bacteria NONE SEEN /hpf (NONE SEEN) 05/24/19 22:05 - Physical Exam Vitals and I&O: Vital Signs Temp 100.5 F 06/03/19 20:00 Pulse 60 06/03/19 20:00 Resp 20 06/03/19 20:00 BP 134/62 06/03/19 20:00 Pulse Ox 95 06/03/19 20:00 Intake & Output 06/03/19 06/03/19 06/04/19 06:59 18:59 06:59 Intake Total 360 1300 Balance 360 1300 Intake: Oral 360 1300 Other: # Voids 2 3 # Bowel Movements 0 0 Active Medications: Current Medications Acetaminophen (Tylenol) 650 mg PO Q4HR PRN PRN Reason: Mild Pain / Temp above 100 Stop: 07/23/19 23:22 Bisacodyl (Dulcolax 10 Mg Supp) 10 mg RC Q48H PRN PRN Reason: Constipation Stop: 07/23/19 23:26 Diazepam (Valium) 5 mg PO HS [facility]; Protocol Stop: 07/24/19 00:00 Last Admin: 06/03/19 21:31 Dose: 5 mg Diazepam (Valium) 2 mg PO 0800,1200,1500 [facility]; Protocol Stop: 07/24/19 07:59 Last Admin: 06/03/19 16:00 Dose: Not Given Donepezil HCl (Aricept) 5 mg PO HS [facility] Stop: 07/24/19 20:59 Last Admin: 06/03/19 21:32 Dose: 5 mg Escitalopram Oxalate (Lexapro) 5 mg PO DAILY [facility]; Protocol Stop: 07/25/19 08:59 Last Admin: 06/03/19 09:08 Dose: 5 mg Ferrous Sulfate (Iron) 325 mg PO DAILY [facility] Stop: 07/24/19 08:59 Last Admin: 06/03/19 09:08 Dose: 325 mg Lamotrigine (Lamictal) 50 mg PO BID [facility]; Protocol Stop: 07/24/19 08:59 Last Admin: 06/03/19 16:57 Dose: 50 mg Magnesium Hydroxide (Milk Of Magnesia) 30 ml PO DAILY PRN PRN Reason: Constipation Stop: 07/23/19 23:26 Magnesium Oxide (Mag-Oxide) 400 mg PO DAILY [facility] Stop: 07/24/19 08:59 Last Admin: 06/03/19 09:09 Dose: 400 mg Memantine (Namenda) 10 mg PO DAILY [facility] Stop: 07/24/19 08:59 Last Admin: 06/03/19 09:09 Dose: 10 mg Multivitamins/Vitamin C (Theragran) 1 tab PO DAILY [facility] Stop: 07/24/19 08:59 Last Admin: 06/03/19 09:08 Dose: 1 tab Neomycin/Polymyxin/Bacitracin (Triple Antibiotic Pkt) 1 pkt TP DAILY [facility] Stop: 08/01/19 12:14 Last Admin: 06/03/19 09:08 Dose: 1 pkt Olanzapine (Zyprexa) 2.5 mg PO QPM [facility]; Protocol Stop: 07/24/19 16:59 Last Admin: 06/03/19 16:57 Dose: 2.5 mg Pantoprazole Sodium (Protonix) 40 mg PO QDAC [facility] Stop: 07/24/19 07:29 Last Admin: 06/03/19 06:30 Dose: 40 mg Sodium Phosphate (Fleet Enema) 135 ml RC Q48H PRN PRN Reason: Constipation Stop: 07/23/19 23:26 Thiamine HCl (Vitamin B1) 100 mg PO HS [facility] Stop: 07/24/19 20:59 Last Admin: 06/03/19 21:32 Dose: 100 mg Cardiovascular: Regular rate Lungs: Clear to auscultation Skin: Other (scalp wound with erythema no active drainage noted) Assessment/Plan - Assessment Assessment: scalp cellulitis/ hematoma mental health disorder - Plan Plan: Continue oral antibiotics Local wound care Case discussed with nursing staff Nutritional Asmnt/Malnutr-PDOC - Dietary Evaluation Malnutrition Findings (Please click <Entered> for more info): Nutritional Asmnt/Malnutrition Start: 05/26/19 12: 14 Text: Status: Complete Freq: Protocol: Document 05/26/19 12:14 CLEOPATRA (Rec: 05/26/19 12:18 [email or web address] [email or web address]) Nutritional Asmnt/Malnutrition Patient General Information Nutritional Screening Moderate Risk Diagnosis Psychosis NOS Pertinent Medical Hx/Surgical Hx Seizures, Dementia Subjective Information IA/Consult: Posterior Scalp Hematoma Pt is a 84-year-old male from [facility] admitted on 05/24 c/o agitation. Per RN Maggy, Pt ate 75% at breakfast today. Per wound care note (05/25), Posterior parietal scalp hematoma and percy-hematoma site is erythematous. Will continue to monitor PO intake progress for wound healing. HT: 511 WT: 178 LB (80.9 kg) BMI: 24.8 (Normal) GI: WNL, Flat, Soft, Non- Tender BM: Not Noted I/O: 120/Not Noted Skin: Wound on head Wound: laceration on RT lower lateral leg and top of head Tyler: 15 Diet Order: Cardiac, JOELLEN Estimated Energy Needs: ( Geriatric, CBW) 2764-0725 kcals (25-30 kcals/ kg) 81-97 g Pro (1.0-1.2 g/kg) 8409-7708 ml (25-30 ml/kg) Current Diet Order/ Nutrition Support Cardiac, JOELLEN Pertinent Medications Dulcolax (PRN), Ferrous Sulfate, MOM (PRN), Mag-Oxide, Theragran, Protonix, Fleet Enema (PRN), Vitamin B1 Pertinent Labs 05/24 Hgb/Hct 12.5/36.8, Potass 5.4, BUN/Cr 33/1.8, Glucose 111, Alb 3.9 Nutritional Hx/Data Height 1.8 m Height (Calculated Centimeters) 180.3 Current Weight (lbs) 80.739 kg Weight (Calculated Kilograms) 80.7 Weight (Calculated Grams) 61220.4 [place] Body Weight 75.3 kg % [place] Body Weight 107 Body Mass Index (BMI) 24.8 Weight Status Approriate GI Symptoms GI Symptoms None Last BM Not Noted Skin Integrity/Comment: laceration on RT lower lateral leg and top of head Current %PO Good (75-100%) Estimated Nutritional Goals BEE in Kcals: Using Current wt Calories/Kcals/Kg 25-30 Kcals Calculated 6551-8437 Protein: Using Current wt Protein g/k.0-1.2 Protein Calculated 81-97 Fluid: ml 5464-9666 ml (25-30 ml/kg) Nutritional Problem 1. Problem Problem Altered nutrition related labs Etiology medical condition Signs/Symptoms: lab result Potass 5.4, BUN/Cr 33/1.8, Glucose 111, Alb 3.9 Malnutrition Related to Morbid Obesity Malnutrition related to morbid obesity No Intervention/Recommendation Comments 1.Continue with Cardiac, JOELLEN diet as ordered. 2.Continue wound care recommendation per wound care note. Expected Outcomes/Goals Expected Outcomes/Goals 1.PO intake to meet 75% of nutritional needs. 2.Monitor PO intake, wt, nutrition related labs to trend WNL, and skin integrity to trend WNL. 3.F/U as moderate risk in 3-5 days, 05/29-05/31
--- NOTE | 2019-06-04 00:36 | Progress Notes ---
DATE: 06/03/2019 SUBJECTIVE: An 84-year-old male remains pretty impulsive, unpredictable, becomes unruly sometimes. He has been calmer this morning, more awake, just more confused, some disorientation noted, very impulsive, unpredictable. Sleeping fairly well, eating well, seems to be eating on his own ____ today, needing some redirection, prompting. We will continue to monitor ongoing concerns mostly about the safety of others, history of aggression or agitation, tolerant of treatment. [facility]# [id number]
[2019-06-04] MEDS: Pantoprazole 40 mg EC Tab PO SCH (06:39)
[2019-06-04] MEDS: Escitalopram Oxalate 5 mg Tab PO SCH (08:27)
[2019-06-04] MEDS: Ferrous Sulfate 325 MG TAB PO SCH (08:27)
[2019-06-04] MEDS: Multivitamin Tab PO SCH (08:27)
[2019-06-04] MEDS: Triple Antibiotic 0.94 gm Pkt TP SCH (08:29)
--- NOTE | 2019-06-04 23:18 | Progress Notes ---
DATE: PSYCHIATRIC PROGRESS NOTE Dr. Rowland covering for Dr. Lorenz. SUBJECTIVE: Chart reviewed and the patient interviewed. Also discussed the patient's condition with the staff and reviewed records and labs. The patient is less irritable and less agitated, but he is still suspicious and paranoid and still needs close monitoring. Also, still having unpredictable behavior. The patient also still needs redirections and is still confused, but easier to redirect him. The patient also is impulsive. Otherwise, the patient is taking his medications and he is more compliant with taking his medications according to the staff with no side effects. ASSESSMENT: The patient is still agitated, but showing improvement. TREATMENT PLAN: Continue Zyprexa 2.5 mg every day. Also, continue monitoring his behavior and his condition closely. JOB# [id number]
[2019-06-05] MEDS: Pantoprazole 40 mg EC Tab PO SCH (06:44)
[2019-06-05] MEDS: Ferrous Sulfate 325 MG TAB PO SCH (08:26)
[2019-06-05] MEDS: Escitalopram Oxalate 5 mg Tab PO SCH (08:26)
[2019-06-05] MEDS: Triple Antibiotic 0.94 gm Pkt TP SCH (08:26)
[2019-06-05] MEDS: Multivitamin Tab PO SCH (08:26)
--- NOTE | 2019-06-05 08:47 | Progress Notes ---
DATE: 06/05/2019 SUBJECTIVE: Chart was reviewed and the patient interviewed. Also discussed the patient's condition with the staff and reviewed records and labs. The patient continued to be extremely angry and in irritable mood and also is still impulsive and unpredictable. The patient also continued to be confused and agitated. Also, still seems to be disoriented and needs lots of redirections. Otherwise, the patient continued to comply with taking his medications with no side effects. ASSESSMENT: The patient is still psychotic and agitated. TREATMENT PLAN: Continue to monitor her behavior and her condition closely. Also, continue Zyprexa same dose and work on his poor impulse control. JOB# [id number]
--- NOTE | 2019-06-05 21:12 | Progress Notes ---
DATE: 06/05/2019 PSYCHIATRIC PROGRESS NOTE SUBJECTIVE: Chart was reviewed and the patient interviewed. Also discussed the patient's condition with the staff and reviewed records and labs. The patient still has unpredictable behavior and is still very impulsive and in angry mood. The patient also is still argumentative, paranoid, and suspicious. He also has episodes of extreme anger. The patient is also still confused and paranoid and seems to be disoriented. Otherwise, the patient is compliant with taking his medications, and the patient denies any side effects of medications. ASSESSMENT: The patient is still agitated and. Dictation ends here. JOB# [id number]
[2019-06-06] MEDS: Pantoprazole 40 mg EC Tab PO SCH (06:45)
[2019-06-06] MEDS: Multivitamin Tab PO SCH (08:59)
[2019-06-06] MEDS: Escitalopram Oxalate 5 mg Tab PO SCH (08:59)
[2019-06-06] MEDS: Triple Antibiotic 0.94 gm Pkt TP SCH (09:00)
[2019-06-06] MEDS: Ferrous Sulfate 325 MG TAB PO SCH (09:00)
[2019-06-06] MEDS: Venelex 60gm Tube TP SCH (13:00)
--- NOTE | 2019-06-06 23:13 | Progress Notes ---
DATE: 06/06/2019 SUBJECTIVE: An 84-year-old male coming from a group home in [place], was really combative and agitated over there. The patient's behaviors do seem to be improving, somewhat more predictable, last week he had quite a few outbursts, throwing food, throwing things at nurses, seems to be generally more cooperative at this time, likely approaching his baseline. Staff noting he has been more amenable to treatment. No agitation or escalation of behaviors. Still confused, disoriented. Medications were noted. PLAN: We will continue to monitor and adjust medications, confirm a safe disposition. JOB# [id number]
[2019-06-07] MEDS: Pantoprazole 40 mg EC Tab PO SCH (06:48)
[2019-06-07] MEDS: Escitalopram Oxalate 5 mg Tab PO SCH (08:46)
[2019-06-07] MEDS: Ferrous Sulfate 325 MG TAB PO SCH (08:47)
[2019-06-07] MEDS: Multivitamin Tab PO SCH (08:47)
[2019-06-07] MEDS: Triple Antibiotic 0.94 gm Pkt TP SCH (08:51)
[2019-06-07] MEDS: Venelex 60gm Tube TP SCH (08:52)
--- NOTE | 2019-06-07 20:29 | Progress Notes ---
DATE: 06/07/[address] Rowland. Case was discussed with staff of the patient, reviewed records. This is an 84-year-old male who was admitted on 05/25/2019 from [facility] because of increasing anxiety, agitation, anger outburst, and paranoia. The patient continues to be irritable, continues to have anger outbursts. Continues to be unpredictable, impulsive, needing redirection. Continues to have poor insight. No side effects with the medication, no sedation, no nausea. He is on Aricept 5 mg at bedtime as well as Lexapro 5 mg daily, lamotrigine 50 mg twice a day, Namenda 10 mg daily, and olanzapine 2.5 mg in the evening. I will continue to work with the patient in group therapy, milieu therapy, and adjust the medication as needed. JOB# [id number]
--- NOTE | 2019-06-07 21:34 | General Progress Note ---
Subjective - Review of Systems Service Date: 06/07/19 Subjective: patient seen examined no new concern noted Objective - Results Result Diagrams: 05/24/19 20:15 05/27/19 07:05 Recent Labs: Laboratory Last Values WBC 7.8 Th/cmm (4.8-10.8) 05/24/19 20:15 RBC 3.75 Mil/cmm (3.80-5.80) L 05/24/19 20:15 Hgb 12.5 gm/dL (12-16) 05/24/19 20:15 Hct 36.8 % (41.0-60) L 05/24/19 20:15 MCV 98.1 fl (80-99) 05/24/19 20:15 MCH 33.4 pg (27.0-31.0) H 05/24/19 20:15 MCHC Differential 34.0 pg (28.0-36.0) 05/24/19 20:15 RDW 12.7 % (11.5-20.0) 05/24/19 20:15 Plt Count 135 Th/cmm (150-400) L 05/24/19 20:15 MPV 9.2 fl 05/24/19 20:15 Neutrophils % 64.1 % (40.0-80.0) 05/24/19 20:15 Lymphocytes % 18.4 % (20.0-50.0) L 05/24/19 20:15 Monocytes % 11.7 % (2.0-10.0) H 05/24/19 20:15 Eosinophils % 5.0 % (0.0-5.0) 05/24/19 20:15 Basophils % 0.8 % (0.0-2.0) 05/24/19 20:15 Sodium 133 mEq/L (136-145) L 05/27/19 07:05 Potassium 4.4 mEq/L (3.5-5.1) 05/27/19 07:05 Chloride 100 mEq/L (98-107) 05/27/19 07:05 Carbon Dioxide 25.8 mEq/L (21.0-31.0) 05/27/19 07:05 Anion Gap 11.6 (7.0-16.0) 05/27/19 07:05 BUN 41 mg/dL (7-25) H 05/27/19 07:05 Creatinine 1.9 mg/dL (0.7-1.3) H 05/27/19 07:05 Est GFR ( Amer) TNP 05/27/19 07:05 Est GFR (Non-Af Amer) TNP 05/27/19 07:05 BUN/Creatinine Ratio 21.6 05/27/19 07:05 Glucose 107 mg/dL (70-105) H 05/27/19 07:05 Calcium 10.0 mg/dL (8.6-10.3) 05/27/19 07:05 Total Bilirubin 0.4 mg/dL (0.3-1.0) 05/24/19 20:15 AST 25 U/L (13-39) 05/24/19 20:15 ALT 14 U/L (7-52) 05/24/19 20:15 Alkaline Phosphatase 71 U/L (34-104) 05/24/19 20:15 Total Protein 7.3 gm/dL (6.0-8.3) 05/24/19 20:15 Albumin 3.9 gm/dL (4.2-5.5) L 05/24/19 20:15 Globulin 3.4 gm/dL 05/24/19 20:15 Albumin/Globulin Ratio 1.2 (1.0-1.8) 05/24/19 20:15 Triglycerides 83 mg/dL (<150) 05/24/19 20:15 Cholesterol 168 mg/dL (<200) 05/24/19 20:15 LDL Cholesterol Direct 100 mg/dL (75-193) 05/24/19 20:15 HDL Cholesterol 55 mg/dL (23-92) 05/24/19 20:15 Urine Source RANDOM 05/24/19 22:05 Urine Color YELLOW 05/24/19 22:05 Urine Clarity CLEAR (CLEAR) 05/24/19 22:05 Urine pH 7.5 (4.6 - 8.0) 05/24/19 22:05 Ur Specific [place] 1.010 (1.005-1.030) 05/24/19 22:05 Urine Protein NEGATIVE mg/dL (NEGATIVE) 05/24/19 22:05 Urine Glucose (UA) NEGATIVE mg/dL (NEGATIVE) 05/24/19 22:05 Urine Ketones NEGATIVE mg/dL (NEGATIVE) 05/24/19 22:05 Urine Blood NEGATIVE (NEGATIVE) 05/24/19 22:05 Urine Nitrate NEGATIVE (NEGATIVE) 05/24/19 22:05 Urine Bilirubin NEGATIVE (NEGATIVE) 05/24/19 22:05 Urine Urobilinogen 0.2 E.U./dL (0.2 - 1.0) 05/24/19 22:05 Ur Leukocyte Esterase NEGATIVE (NEGATIVE) 05/24/19 22:05 Urine RBC NONE SEEN /hpf (0-5) 05/24/19 22:05 Urine WBC NONE SEEN /hpf (0-5) 05/24/19 22:05 Ur Epithelial Cells NONE SEEN /lpf (FEW) 05/24/19 22:05 Urine Bacteria NONE SEEN /hpf (NONE SEEN) 05/24/19 22:05 - Physical Exam Vitals and I&O: Vital Signs Temp 98.2 F 06/07/19 20:04 Pulse 67 06/07/19 20:04 Resp 18 06/07/19 20:04 BP 128/71 06/07/19 20:04 Pulse Ox 94 06/07/19 20:04 Intake & Output 06/07/19 06/07/19 06/08/19 06:59 18:59 06:59 Intake Total 120 800 120 Output Total 1 Balance 119 800 120 Intake: Oral 120 800 120 Output: Urine/Stool Mix 1 Other: # Voids 3 2 2 # Bowel Movements 0 0 0 Active Medications: Current Medications Acetaminophen (Tylenol) 650 mg PO Q4HR PRN PRN Reason: Mild Pain / Temp above 100 Stop: 07/23/19 23:22 Bisacodyl (Dulcolax 10 Mg Supp) 10 mg RC Q48H PRN PRN Reason: Constipation Stop: 07/23/19 23:26 [place] Oil/Australian Balsam/Trypsin (Venelex) 1 appl TP DAILY [facility] Stop: 08/05/19 11:29 Last Admin: 06/07/19 08:52 Dose: 1 appl Diazepam (Valium) 5 mg PO HS [facility]; Protocol Stop: 07/24/19 00:00 Last Admin: 06/07/19 20:47 Dose: 5 mg Diazepam (Valium) 2 mg PO 0800,1200,1500 [facility]; Protocol Stop: 07/24/19 07:59 Last Admin: 06/07/19 16:04 Dose: 2 mg Donepezil HCl (Aricept) 5 mg PO HS [facility] Stop: 07/24/19 20:59 Last Admin: 06/07/19 20:47 Dose: 5 mg Escitalopram Oxalate (Lexapro) 5 mg PO DAILY [facility]; Protocol Stop: 07/25/19 08:59 Last Admin: 06/07/19 08:46 Dose: 5 mg Ferrous Sulfate (Iron) 325 mg PO DAILY [facility] Stop: 07/24/19 08:59 Last Admin: 06/07/19 08:47 Dose: 325 mg Lamotrigine (Lamictal) 50 mg PO BID [facility]; Protocol Stop: 07/24/19 08:59 Last Admin: 06/07/19 16:11 Dose: 50 mg Magnesium Hydroxide (Milk Of Magnesia) 30 ml PO DAILY PRN PRN Reason: Constipation Stop: 07/23/19 23:26 Magnesium Oxide (Mag-Oxide) 400 mg PO DAILY [facility] Stop: 07/24/19 08:59 Last Admin: 06/07/19 08:47 Dose: 400 mg Memantine (Namenda) 10 mg PO DAILY [facility] Stop: 07/24/19 08:59 Last Admin: 06/07/19 08:47 Dose: 10 mg Multivitamins/Vitamin C (Theragran) 1 tab PO DAILY [facility] Stop: 07/24/19 08:59 Last Admin: 06/07/19 08:47 Dose: 1 tab Neomycin/Polymyxin/Bacitracin (Triple Antibiotic Pkt) 1 pkt TP DAILY [facility] Stop: 08/01/19 12:14 Last Admin: 06/07/19 08:51 Dose: 1 pkt Olanzapine (Zyprexa) 2.5 mg PO QPM [facility]; Protocol Stop: 07/24/19 16:59 Last Admin: 06/07/19 16:11 Dose: 2.5 mg Pantoprazole Sodium (Protonix) 40 mg PO QDAC [facility] Stop: 07/24/19 07:29 Last Admin: 06/07/19 06:48 Dose: 40 mg Sodium Phosphate (Fleet Enema) 135 ml RC Q48H PRN PRN Reason: Constipation Stop: 07/23/19 23:26 Thiamine HCl (Vitamin B1) 100 mg PO HS [facility] Stop: 07/24/19 20:59 Last Admin: 06/07/19 20:46 Dose: 100 mg Tobramycin Sulfate (Tobrex 0.3% Ophth Soln) 2 drop EACH EYE TID [facility] Stop: 08/06/19 20:59 Last Admin: 06/07/19 20:53 Dose: Not Given Cardiovascular: Regular rate Lungs: Clear to auscultation Skin: Other (scalp wound with erythema no active drainage noted) Assessment/Plan - Assessment Assessment: scalp cellulitis/ hematoma mental health disorder - Plan Plan: Better Finished antibiotic Local wound care Case discussed with nursing staff Nutritional Asmnt/Malnutr-PDOC - Dietary Evaluation Malnutrition Findings (Please click <Entered> for more info): Nutritional Asmnt/Malnutrition Start: 05/26/19 12: 14 Text: Status: Complete Freq: Protocol: Document 05/26/19 12:14 CLEOPATRA (Rec: 05/26/19 12:18 CLEOPATRA [email or web address]) Nutritional Asmnt/Malnutrition Patient General Information Nutritional Screening Moderate Risk Diagnosis Psychosis NOS Pertinent Medical Hx/Surgical Hx Seizures, Dementia Subjective Information IA/Consult: Posterior Scalp Hematoma Pt is a 84-year-old [facility] from [facility] admitted on 05/24 c/o agitation. Per RN Maggy, Pt ate 75% at breakfast today. Per wound care note (05/25), Posterior parietal scalp hematoma and percy-hematoma site is erythematous. Will continue to monitor PO intake progress for wound healing. HT: 511 WT: 178 LB (80.9 kg) BMI: 24.8 (Normal) GI: WNL, Flat, Soft, Non- Tender BM: Not Noted I/O: 120/Not Noted Skin: Wound on head Wound: laceration on RT lower lateral leg and top of head Tyler: 15 Diet Order: Cardiac, JOELLEN Estimated Energy Needs: ( Geriatric, CBW) 4076-3780 kcals (25-30 kcals/ kg) 81-97 g Pro (1.0-1.2 g/kg) 2507-5304 ml (25-30 ml/kg) Current Diet Order/ Nutrition Support Cardiac, JOELLEN Pertinent Medications Dulcolax (PRN), Ferrous Sulfate, MOM (PRN), Mag-Oxide, Theragran, Protonix, Fleet Enema (PRN), Vitamin B1 Pertinent Labs 05/24 Hgb/Hct 12.5/36.8, Potass 5.4, BUN/Cr 33/1.8, Glucose 111, Alb 3.9 Nutritional Hx/Data Height 1.8 m Height (Calculated Centimeters) 180.3 Current Weight (lbs) 80.739 kg Weight (Calculated Kilograms) 80.7 Weight (Calculated Grams) 22104.4 [place] Body Weight 75.3 kg % [place] Body Weight 107 Body Mass Index (BMI) 24.8 Weight Status Approriate GI Symptoms GI Symptoms None Last BM Not Noted Skin Integrity/Comment: laceration on RT lower lateral leg and top of head Current %PO Good (75-100%) Estimated Nutritional Goals BEE in Kcals: Using Current wt Calories/Kcals/Kg 25-30 Kcals Calculated 9070-5051 Protein: Using Current wt Protein g/k.0-1.2 Protein Calculated 81-97 Fluid: ml 6667-4981 ml (25-30 ml/kg) Nutritional Problem 1. Problem Problem Altered nutrition related labs Etiology medical condition Signs/Symptoms: lab result Potass 5.4, BUN/Cr 33/1.8, Glucose 111, Alb 3.9 Malnutrition Related to Morbid Obesity Malnutrition related to morbid obesity No Intervention/Recommendation Comments 1.Continue with Cardiac, JOELLEN diet as ordered. 2.Continue wound care recommendation per wound care note. Expected Outcomes/Goals Expected Outcomes/Goals 1.PO intake to meet 75% of nutritional needs. 2.Monitor PO intake, wt, nutrition related labs to trend WNL, and skin integrity to trend WNL. 3.F/U as moderate risk in 3-5 days, 05/29-05/31
--- NOTE | 2019-06-07 23:56 | Progress Notes ---
DATE: 06/07/2019 SUBJECTIVE: The patient is currently in the hospital, seems to be showing some signs of improvement. Seems to be calmer, more cooperative, more amenable to care. Medications were noted. The patient is sleeping on exam, but arousable, still confused, some disorientation noted. Eating on his own volition. No longer throwing things. ASSESSMENT: The patient likely approaching his baseline. PLAN: We will recommend further 24 hours of monitoring. [facility]# [id number]
[2019-06-08] MEDS: Pantoprazole 40 mg EC Tab PO SCH (06:49)
[2019-06-08] MEDS: Escitalopram Oxalate 5 mg Tab PO SCH (10:01)
[2019-06-08] MEDS: Ferrous Sulfate 325 MG TAB PO SCH (10:01)
[2019-06-08] MEDS: Multivitamin Tab PO SCH (12:20)
[2019-06-08] MEDS: Triple Antibiotic 0.94 gm Pkt TP SCH (16:25)
[2019-06-08] MEDS: Venelex 60gm Tube TP SCH (16:25)
--- NOTE | 2019-06-08 21:20 | Discharge Summary ---
DATE OF DISCHARGE: 06/08/2019 HISTORY OF PRESENT ILLNESS: This is an 84-year-old male sent from a longterm. Referred by Dr. Lorenz for increased anxiety, agitation, anger outbursts, paranoid. The staff could not handle him. They are having a hard time taking care of him because of his aggressiveness, verbally aggressive, accosting others, disrupting the milieu at the longterm in [place]. PAST PSYCHIATRIC HISTORY: Noted. 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 PROVISIONAL DIAGNOSES: Major depression, recurrent, severe, also rule out dementia. Concerns for psychosis, unspecified. MEDICAL HISTORY: Please see full H and P. HOSPITAL COURSE: After initial assessment, the patient was started on medications, low dose Zyprexa, Aricept, Lexapro, Valium. Over the course of treatment, mood improved. He was generally calmer, much more restful, no agitation toward the latter end of treatment, more redirectable and remains confused, but no longer accosting others or no longer verbal, tolerant of treatment including Lamictal, Lexapro. Toward the latter end of treatment, he was devoid of any symptoms and discharged. CONDITION ON DISCHARGE: Improved. Confused, disoriented, but calm. No SI, no HI, no psychosis. Better impulse control. PROVISIONAL DIAGNOSES: Mood, unspecified; anxiety, unspecified; psychosis, unspecified; dementia with behaviors. MEDICAL: Reviewed. Please see full H and P. MEDICATIONS: Noted. PROGNOSIS: The patient follows up with outpatient mental health services and remains compliant with treatment. Prognosis will improve, otherwise guarded. [facility]# [id number]
== END 2019-06-08 17:15 | DRG 885 ==
LOC: ER 19:40 → GERO 20:45 → GERO2 21:41 → GERO 22:16 → GERO2 22:48 → GERO 05-27 17:51
PROVIDERS: ADMIT Psychiatry & Neurology Psychiatry; ATTEND Psychiatry & Neurology Psychiatry
DX: F33.3 Major depressive disorder, recurrent, severe with psychotic symptoms (principal); N17.9 Acute kidney failure, unspecified; L03.811 Cellulitis of head [any part, except face]; F03.91 Unspecified dementia, unspecified severity, with behavioral disturbance; G40.909 Epilepsy, unspecified, not intractable, without status epilepticus; F41.9 Anxiety disorder, unspecified; F29 Unspecified psychosis not due to a substance or known physiological condition; K59.09 Other constipation; S00.03XA Contusion of scalp, initial encounter; W18.30XA Fall on same level, unspecified, initial encounter; Y93.89 Activity, other specified; Y92.89 Other specified places as the place of occurrence of the external cause; Y99.8 Other external cause status; Z88.0 Allergy status to penicillin; Z88.1 Allergy status to other antibiotic agents
CPT/HCPCS: 36415-UA; 70450-TC; 80048-TC; 80053-TC; 80061-TC; 81001-TC; 83036-90; 85025-TC; 93005; G0410; Z7610